=== PATIENT | female | born 1935 | race Caucasian/White ===

== ENCOUNTER 2017-02-05 09:15 | Outpatient (CLI) | payer MEDICARE ==
[2017-02-05 10:31] LABS: ALT (SGPT) 17 U/L (8-55); AST (SGOT) 25 U/L (5-34); Albumin 4.1 g/dL (3.4-4.8); Alkaline Phosphatase 74 U/L (40-150); Anion Gap 14 mmol/L (10-20); BUN (Urea Nitrogen) 23 mg/dL (9.8-20.1); Bilirubin, Total 0.5 mg/dL (0.2-1.2); Calc. Creatinine Clearance 0 mL/min (70-130); Calcium 9.5 mg/dL (7.8-10.44); Carbon Dioxide 29 mmol/L (23-31); Cardiac Risk 3.3 (Less than 4.5); Chloride 104 mmol/L (98-107); Cholesterol 206 mg/dl (< 200 Desired); Estimated GFR-MDRD 73; Globulin 3.7 g/dL (2.4-3.5); Glucose 91 mg/dL (83-110); HDL Cholesterol 63 mg/dL (>60 Neg Risk); LDL Cholesterol, Calculated 130 mg/dL; Potassium 4.8 mmol/L (3.5-5.1); Protein, Total 7.8 g/dL (6.0-8.3); Sodium 142 mmol/L (136-145); Triglycerides 64 mg/dL (Less than 150)
[2017-02-05 11:11] LABS: #Basophils 0.1 thou/uL (0.0-0.2); #Eosinphils 0.1 thou/uL (0.0-0.7); #Lymphocytes 1.7 thou/uL (1.20-3.40); #Monocytes 0.7 thou/uL (0.11-0.59); #Neutrophils 2.8 thou/uL (1.40-6.50); %Basophils 1.1 % (0.0-1.0); %Eosinophils 2.3 % (0.0-10.0); %Lymphocytes 31.2 % (21.0-51.0); %Monocytes 12.6 % (0.0-10.0); %Neutrophils 52.8 % (42.0-75.0); Hemoglobin 12.8 g/dL (12.0-16.0); Mean Corpuscular HGB CONC 33.1 g/dL (32.0-36.0); Mean Corpuscular Hemoglobin 30.9 pg (27.0-31.0); Mean Corpuscular Volume 93.3 fl (81.0-99.0); Mean Platelet Volume 7.1 fL (7.4-10.4); Platelet Count 188 thou/uL (130-400); RBC Distribution Width 12.5 % (11.5-14.5); Red Blood Cell (RBC) Count 4.15 mill/uL (4.20-5.40); White Blood Cell (WBC) Count 5.4 thou/uL (4.8-10.8)
== END 2017-02-05 09:16 | disposition home or self-care (01) ==
LOC: HPCALD 09:15
PROVIDERS: ATTEND Family Medicine
DX: E78.5 Hyperlipidemia, unspecified (principal); E03.9 Hypothyroidism, unspecified
CPT/HCPCS: 36415; 80053; 80061; 84443; 85025

== ENCOUNTER 2019-05-19 02:40 | Emergency (ER) | payer MEDICARE ==
--- NOTE | 2019-05-19 09:30 | CT ---
PRELIMINARY REPORT/[facility]/EMERGENCY AFTER HOURS PROCEDURE: PROCEDURE INFORMATION: Exam: CT Head Without Contrast Exam date and time: 05/19/2019 2:49 AM Clinical history: 84 years old, female; Injury or trauma; Initial encounter; Blunt trauma (contusions or hematomas); Without loss of consciousness; Injury date: 05/19/19; Injury details: S/P fall, lac/s welling over RT eyebrow TECHNIQUE: Imaging protocol: Computed tomography of the head without contrast. Radiation optimization: All CT scans at this facility use at least one of these dose optimization techniques: automated exposure control; mA and/or kV adjustment per patient size (includes targeted e xams where dose is matched to clinical indication); or iterative reconstruction. COMPARISON: No relevant prior studies available. FINDINGS: Brain: Scattered areas of hypoattenuation, likely chronic small vessel ischemic change, demyelination, or gliosis. No mass, hemorrhage, or acute infarction. Ventricles: Normal. Bones/joints: Normal. Sinuses: Normal as visualized. Mastoid air cells: Normal as visualized. Soft tissues: Moderate right frontal soft tissue swelling/contusion, with 2 cm subcutaneous hematoma. Vasculature: Atherosclerotic vascular calcifications. IMPRESSION: 1. No acute intracranial abnormality. 2. Moderate right frontal soft tissue swelling/contusion, with 2 cm subcutaneous hematoma. Thank you for allowing us to participate in the care of your patient. Dictated and Authenticated by: Thor Azar MD 05/19/2019 3:25 AM Central Time ([place] & [place]) FINAL REPORT CT OF THE BRAIN WITHOUT CONTRAST: Date: 05/19/19 Comparison made with the 05/26/16 study. Review of MRI of the brain report since then was made as wel og. A soft tissue contusion is seen over the forehead just to the right of midline. The underlying fronta l bone appears intact with no fracture. Internally, there is no sign of intracranial hemorrhage or ex tra-axial hematoma. The ventricular sizes are normal for age and atrophy. Patchy deep white matter dedra cency is typical of chronic microvascular ischemia. Basal ganglia calcifications are noted. IMPRESSION: No acute intracranial findings. Soft tissue contusion over the right forehead. Report in agreement with preliminary reading by [facility]. POS: HOME
--- NOTE | 2019-05-19 09:31 | CT ---
PRELIMINARY REPORT/[facility]/EMERGENCY AFTER HOURS PROCEDURE: PROCEDURE INFORMATION: Exam: CT Cervical Spine Without Contrast Exam date and time: 05/19/2019 2:52 AM Clinical history: 84 years old, female; Injury or trauma; Initial encounter; Blunt trauma; Injury fatmata e: 05/19/19; Injury details: S/P fall, PT C/O neck pain TECHNIQUE: Imaging protocol: Computed tomography images of the cervical spine without contrast. Radiation optimization: All CT scans at this facility use at least one of these dose optimization iraida hniques: automated exposure control; mA and/or kV adjustment per patient size (includes targeted exam s where dose is matched to clinical indication); or iterative reconstruction. COMPARISON: No relevant prior studies available. FINDINGS: Vertebrae: No acute fracture or malalignment. Discs/Spinal canal/Neural foramina: Multilevel degenerative disc disease, worst at the C4-5 through C 6-7 levels, where there is moderate disc space narrowing and osteophyte formation. Moderate degenerative changes of the atlantoaxial reticulation. Moderate multilevel bilateral facet a nd uncovertebral arthropathy. Bilateral C3-4, C4-5, bilateral C5-6, and left C6-7 neural foraminal na rrowing. Soft tissues: Normal. Lungs: Lung apices are normal. Vasculature: Carotid atherosclerotic calcifications. IMPRESSION: No acute fracture or malalignment. Thank you for allowing us to participate in the care of your patient. Dictated and Authenticated by: Thor Azar MD 05/19/2019 3:26 AM Central Time ([place] & [place]) FINAL REPORT CT OF THE CERVICAL SPINE: Date: 05/19/[address] of the cervical spine was done following trauma. There is some loss of the normal cervical lordosis, which may be due to muscle spasm. The C1 to dens distance is not widened and the soft tissues are normal in thickness. Disc space narrowing is particu larly present at C4-C5, C5-C6, and C6-C7. No fracture seen. Multilevel facet arthritis is present thr oughout the entire spine. Bilateral foraminal narrowing is seen at C3-C4, C4-C5, C5-C6, and on the le ft at C6-C7. Numerous osteophytes are apparent. IMPRESSION: Numerous degenerative changes and loss of the normal cervical lordosis. No fracture demonstrated. Report in agreement with preliminary reading by Mar[facility]. POS: HOME
== END 2019-05-19 05:20 ==
LOC: BURERS 02:40
DX: S61.411A Laceration without foreign body of right hand, initial encounter (principal); S00.83XA Contusion of other part of head, initial encounter; Z23 Encounter for immunization; Z79.899 Other long term (current) drug therapy; Z79.82 Long term (current) use of aspirin; W01.0XXA Fall on same level from slipping, tripping and stumbling without subsequent striking against object, initial encounter
CPT/HCPCS: 70450; 72125; 90471

== ENCOUNTER 2020-01-27 18:50 | Emergency (ER) | payer MEDICARE, OTHER ==
[~2020-01-27 18:50] MED LIST: Iopamidol 370 76% 100 ML VIAL ONE
[2020-01-27 19:25] LABS: #Basophils 0.1 thou/uL (0.0-0.2); #Lymphocytes 1.6 thou/uL (1.20-3.40); #Monocytes 0.6 thou/uL (0.11-0.59); %Basophils 1.4 % (0.0-1.0); %Eosinophils 0.9 % (0.0-10.0); %Lymphocytes 30.3 % (21.0-51.0); %Monocytes 11.4 % (0.0-10.0); %Neutrophils 55.9 % (42.0-75.0); Hemoglobin 11.9 g/dL (12.0-16.0); Mean Corpuscular HGB CONC 31.1 g/dL (32.0-36.0); Mean Corpuscular Hemoglobin 31.2 pg (27.0-31.0); Mean Platelet Volume 7.2 fL (7.4-10.4); Platelet Count 176 thou/uL (130-400); RBC Distribution Width 12.1 % (11.5-14.5); Red Blood Cell (RBC) Count 3.82 mill/uL (4.20-5.40); White Blood Cell (WBC) Count 5.3 thou/uL (4.8-10.8)
[2020-01-27 19:39] LABS: ALT (SGPT) 14 U/L (8-55); AST (SGOT) 18 U/L (5-34); Albumin 3.9 g/dL (3.4-4.8); Alkaline Phosphatase 55 U/L (40-110); Anion Gap 15 mmol/L (10-20); BUN (Urea Nitrogen) 16 mg/dL (9.8-20.1); Bilirubin, Total 0.3 mg/dL (0.2-1.2); Calc. Creatinine Clearance 0 mL/min (70-130); Calcium 9.3 mg/dL (7.8-10.44); Carbon Dioxide 26 mmol/L (23-31); Chloride 104 mmol/L (98-107); Estimated GFR-MDRD 60; Globulin 3.1 g/dL (2.4-3.5); Glucose 138 mg/dL (83-110); Potassium 3.9 mmol/L (3.5-5.1); Sodium 141 mmol/L (136-145)
--- NOTE | 2020-01-27 19:59 | CT ---
CT OF THE BRAIN WITHOUT CONTRAST: 01/27/20 Comparison is made with the 05/19/19 study. There has been no adverse interval change. No intracranial bleeding, mass, or extra-axial hematoma wa s seen. There is no sign of edema or acute stroke. The ventricles are normal in size given age and at rophy. There is abundant atrophy and chronic ischemic change throughout the deep white matter, as bef ore. The calvarium appears intact. The visible paranasal sinuses and mastoid air cells are clear. IMPRESSION: No acute intracranial findings. Abundant chronic changes as noted. Preliminary report called to Dr. Ruiz at 1941 on 01/27/20. POS: HOME
--- NOTE | 2020-01-27 20:05 | RAD ---
PELVIS ONE VIEW: 01/27/20 The bony pelvis appears intact. No fractures are seen. The SI joints are symmetrical. The arcuate akosua es of the sacrum appear intact. The hips show no gross fracture or dislocation. The symphysis shows n o widening or off-set. The pubic rings are intact. Femoral artery calcifications are evident. IMPRESSION: No acute bony finding. POS: HOME
--- NOTE | 2020-01-27 20:06 | RAD ---
PORTABLE CHEST: 01/27/20 Comparison is made with the 05/26/16 study. The heart is mildly enlarged but there are no congestive changes or pleural effusions. The lungs are currently clear. No focal pneumonia or pleural effusion was indicated. Calcification is seen in the a ortic arch as usual. Severe arthritic changes in the left glenohumeral joint are present as before. IMPRESSION: No acute thoracic findings. POS: HOME
--- NOTE | 2020-01-27 20:11 | CT ---
CT OF THE CERVICAL SPINE: 01/27/20 Comparison is made with the 05/19/19 study. The patient is turned to the side which slightly impedes reading the study. Nevertheless, no fracture , dislocation, or acute bony change was seen. There is no soft tissue swelling. The C1 to dens distan ce is not widened. There is bilateral foraminal narrowing at most cervical levels as has been mention ed on the prior study. Changes in narrowing are worst at the C5-C6 and C6-C7 levels. Disc space narro wing is present at C4 and below. IMPRESSION: Advanced degenerative changes but no acute traumatic findings. Preliminary report called to Dr. Ruiz at 1941 on 01/27/20. POS: HOME
--- NOTE | 2020-01-27 21:37 | CT ---
CT CHEST, ABDOMEN AND PELVIS WITH CONTRAST: 01/27/[address] of the abdomen and pelvis was done after giving IV contrast. CT OF THE THORAX: There is no sign of mediastinal hematoma, mass, or adenopathy. The aorta appears intact and contains no aneurysm or dissection. No pericardial effusion was seen. The lungs are clear except for some depe ndent atelectasis and minor scarring. There is no sign of parenchymal contusion, pleural effusion or pneumothorax. The ribs and other thoracic structures showed no acute changes. There is a mild anterio r compression of the T11 vertebral body, but this is not new. It can be seen on a [address] OF THE ABDOMEN AND PELVIS: The liver, spleen, pancreas, gallbladder, adrenal glands, kidneys and abdominal aorta showed no acute changes. All organs appeared intact and show no laceration or hematoma. There is no distention of bowel or inflammatory change around it. No free air or free fluid was seen. CT of the pelvis shows no pelvic mass, fluid collection or inflammatory change. The bony pelvis, hips and lumbar spine showed no acute fracture. There are numerous degenerative changes of a moderately s evere degree throughout the lumbar spine. Degenerated discs are seen at multiple levels and there is even a small sequestered fragment on the left at L3. This is most likely longstanding as well. IMPRESSION: 1. No acute findings in the chest, abdomen or pelvis. 2. Mild anterior compression of T11, a longstanding finding. Preliminary report called to Dr. Ruiz at [id number] on 01/27/20. POS: HOME
[2020-01-27] MEDS ORDERED: Haloperidol Lactate 5 MG/ML VIAL ONE (21:52)
[2020-01-27 23:13] LABS: Lactic Acid 2.3 mmol/L (0.5-2.2)
[2020-01-28 00:15] LABS: Bilirubin Negative (Negative); Blood, Urine Trace (Negative); Clarity Slightly Cloudy (Clear); Glucose, Urine (Dipstick) Negative (Negative); Ketone, Urine Negative (Negative); Leukocyte Moderate (Negative); Nitrite Positive (Negative); Protein, Urine (Dipstick) Negative (Neg-Trace); Specific Gravity, Urine 1.015 (1.005-1.030); Urobilinogen 0.2 mg/dL (Less than 2)
[2020-01-28 00:19] LABS: Bacteria/HPF 2+ HPF (None Seen); Squamous Epithelial None Seen HPF (0-3); WBC/HPF Greater Than 50 HPF (0-3)
[2020-01-28] MEDS ORDERED: cefTRIAXone\\ROCEPHIN 1 GM VIAL ONE (00:30)
[2020-01-28] MEDS ORDERED: Lidocaine 1% PF 5 ML VIAL ONE (00:31)
== END 2020-01-28 00:59 | disposition home or self-care (01) ==
LOC: BURERS 18:50
DX: Z04.3 Encounter for examination and observation following other accident (principal); E86.0 Dehydration; N39.0 Urinary tract infection, site not specified; F32.9 Major depressive disorder, single episode, unspecified; E03.9 Hypothyroidism, unspecified; E78.5 Hyperlipidemia, unspecified; K21.9 Gastro-esophageal reflux disease without esophagitis; F03.90 Unspecified dementia, unspecified severity, without behavioral disturbance, psychotic disturbance, mood disturbance, and anxiety; Z79.899 Other long term (current) drug therapy; Z79.82 Long term (current) use of aspirin
CPT/HCPCS: 36415; 51701; 70450; 71045; 71260; 72125; 72170; 74177; 80053; 81003; 81015; 83605; 85025; 85610; 87077; 87086; 87186; 93005; 96361; 96372; 96374; J0696; J1630; J2001; Q9967

== ENCOUNTER 2020-03-20 13:34 | Emergency (ER) | payer MEDICARE, MEDICAID ==
[2020-03-20 14:07] LABS: Bilirubin Negative (Negative); Blood, Urine Moderate (Negative); Clarity Cloudy (Clear); Glucose, Urine (Dipstick) Negative (Negative); Ketone, Urine Trace mg/dL (Negative); Leukocyte Large (Negative); Nitrite Positive (Negative); Protein, Urine (Dipstick) 100 mg/dL (Neg-Trace); Urobilinogen 0.2 mg/dL (Less than 2); pH, Urine 5.5 (5.0-9.0)
[2020-03-20 14:08] LABS: Specific Gravity, Urine 1.024 (1.002-1.036)
[2020-03-20 14:11] LABS: Bacteria/HPF 4+ HPF (None Seen); Mucous/LPF 2+ LPF (<2+); Squamous Epithelial 0-3 HPF (0-3); WBC/HPF Greater Than 50 HPF (0-3)
[2020-03-20 14:12] LABS: #Basophils 0.1 thou/uL (0.0-0.2); #Lymphocytes 1.7 thou/uL (1.20-3.40); #Monocytes 0.7 thou/uL (0.11-0.59); %Basophils 1.1 % (0.0-1.0); %Eosinophils 0.5 % (0.0-10.0); %Monocytes 8.9 % (0.0-10.0); %Neutrophils 66.4 % (42.0-75.0); Hemoglobin 13.3 g/dL (12.0-16.0); Mean Corpuscular HGB CONC 31.3 g/dL (32.0-36.0); Mean Corpuscular Hemoglobin 31.4 pg (27.0-31.0); Mean Platelet Volume 8.5 fL (7.4-10.4); Platelet Count 194 thou/uL (130-400); RBC Distribution Width 11.8 % (11.5-14.5); Red Blood Cell (RBC) Count 4.24 mill/uL (4.20-5.40); White Blood Cell (WBC) Count 7.5 thou/uL (4.8-10.8)
[2020-03-20 14:22] LABS: ALT (SGPT) 30 U/L (8-55); AST (SGOT) 33 U/L (5-34); Alkaline Phosphatase 63 U/L (40-110); Anion Gap 17 mmol/L (10-20); BUN (Urea Nitrogen) 21 mg/dL (9.8-20.1); Bilirubin, Total 0.4 mg/dL (0.2-1.2); CK (CPK) 38 U/L (29-168); Calc. Creatinine Clearance 0 mL/min (70-130); Calcium 9.4 mg/dL (7.8-10.44); Carbon Dioxide 24 mmol/L (23-31); Chloride 105 mmol/L (98-107); Estimated GFR-MDRD 50; Globulin 2.9 g/dL (2.4-3.5); Glucose 142 mg/dL (83-110); Protein, Total 6.9 g/dL (6.0-8.3); Sodium 142 mmol/L (136-145)
[2020-03-20] MEDS ORDERED: cefTRIAXone\\ROCEPHIN 2 GM VIAL ONE (14:33)
[2020-03-20] MEDS ORDERED: Sodium Chloride 0.9% 0 ML ONE (14:34)
[2020-03-20] MEDS ORDERED: Sodium Chloride 0.9% 100 ML ONE (14:35)
--- NOTE | 2020-03-20 18:25 | CT ---
CT OF THE BRAIN WITHOUT CONTRAST: Date: 03-20-2020 Comparison: 01-27-2020 FINDINGS: As before, patchy hypolucency is present throughout the deep white matter, typical of chronic microva scular ischemia. There were no findings strongly suggestive of acute stroke though small ones can be missed against this background. No intracranial bleeding or extraaxial hematoma was seen. Diffuse atr ophy with mild compensatory dilatation of the ventricles is seen as before. Basal ganglia calcificati ons are prominent bilaterally. The skull appears intact and the visible paranasal sinuses are clear. IMPRESSION: Atrophy and chronic ischemic change but no acute findings. Preliminary report called to Dr. Boudreaux at 1424 on 03-20-2020. POS: HOME
--- NOTE | 2020-03-20 19:26 | CT ---
CT OF THE CERVICAL SPINE: Date: 03-20-[address] of the cervical spine was done following trauma. Axial slices were acquired followed by cor onal and sagittal reconstructions. FINDINGS: No fracture, dislocation, or acute bony change was noted. The disc spaces are uniformly narrowed at a ll cervical levels, but particularly at C4 and below. Soft tissues of the neck showed no acute trauma tic changes. Findings by level follow: C1-2: No acute findings. C2-3: Mild right foraminal stenosis. C3-4: Moderate to severe right foraminal stenosis and moderate left foraminal stenosis. C4-5: Bilateral severe foraminal stenosis. The AP diameter of the spinal canal at this level was abou t 9 mm. C5-6: Severe bilateral foraminal stenosis. The AP diameter of the canal at this level is approximatel y 9 mm. C6-7: Moderate to severe left foraminal stenosis due to osteophytes. C7-T1: No acute findings. T1-2: No acute findings. T2-3: No acute findings. There is an 8 mm nodular density in the right lung apex. I cannot tell if it is an actual nodule or i f it part of some pleural scarring. Looking back at the prior CT of 01-27-2020, it was a little less co nspicuous on that scan than it is now. Given its subcentimeter size and the patient's age, the need f or further follow up is felt to be low to nonexistent. IMPRESSION: 1. No acute traumatic finding. 2. Moderately severe degenerative changes noted with multilevel degenerative disc disease, mild centr al canal stenosis, at least two levels. 3. Equivocal right apical nodule, 8 mm, probably not of current concern. Preliminary report called to Dr. Boudreaux at 1424 on 03-20-2020. POS: HOME
--- NOTE | 2020-03-20 20:05 | RAD ---
PORTABLE CHEST: Date: 03-20-2020 An AP portable film at 1422 is compared with a 01-27-2020 study. FINDINGS: The heart remains normal in size and the lungs are clear. No infiltrate, effusion, or congestive haque ge was seen. There might be some minimal atelectasis in the right costophrenic angle. No fractures we re evident, though subtle injuries might be missed due to her osteopenia. There are severe degenerati ve changes in the left glenohumeral joint and right AC joint. IMPRESSION: No acute thoracic finding. POS: HOME
== END 2020-03-20 16:25 | disposition short-term general hospital (02) ==
LOC: BURERS 13:34
DX: N39.0 Urinary tract infection, site not specified (principal); R41.82 Altered mental status, unspecified; E03.9 Hypothyroidism, unspecified; E78.5 Hyperlipidemia, unspecified; K21.9 Gastro-esophageal reflux disease without esophagitis; I10 Essential (primary) hypertension; F03.90 Unspecified dementia, unspecified severity, without behavioral disturbance, psychotic disturbance, mood disturbance, and anxiety; F32.9 Major depressive disorder, single episode, unspecified; Z79.899 Other long term (current) drug therapy; Z79.82 Long term (current) use of aspirin
CPT/HCPCS: 36415; 51701; 70450; 71045; 72125; 80053; 81003; 81015; 82550; 83605; 84484; 85025; 87040; 87077; 87086; 87186; 93005; 96361; 96374; J0696; J3490

== ENCOUNTER 2020-05-10 10:27 | Outpatient (CLI) | payer MEDICARE, MEDICAID ==
[2020-05-10 10:37] LABS: #Basophils 0.1 thou/uL (0.0-0.2); #Eosinphils 0.1 thou/uL (0.0-0.7); #Lymphocytes 1.6 thou/uL (1.20-3.40); #Monocytes 0.7 thou/uL (0.11-0.59); #Neutrophils 2.4 thou/uL (1.40-6.50); %Basophils 1.6 % (0.0-1.0); %Eosinophils 1.5 % (0.0-10.0); %Monocytes 13.5 % (0.0-10.0); %Neutrophils 49.5 % (42.0-75.0); Hemoglobin 11.2 g/dL (12.0-16.0); Mean Corpuscular HGB CONC 31.1 g/dL (32.0-36.0); Mean Corpuscular Hemoglobin 31.1 pg (27.0-31.0); Mean Platelet Volume 7.5 fL (7.4-10.4); Platelet Count 280 thou/uL (130-400); RBC Distribution Width 12.3 % (11.5-14.5); Red Blood Cell (RBC) Count 3.61 mill/uL (4.20-5.40); White Blood Cell (WBC) Count 4.8 thou/uL (4.8-10.8)
[2020-05-10 10:51] LABS: ALT (SGPT) 22 U/L (8-55); AST (SGOT) 23 U/L (5-34); Albumin 3.6 g/dL (3.4-4.8); Alkaline Phosphatase 63 U/L (40-110); Anion Gap 14 mmol/L (10-20); BUN (Urea Nitrogen) 22 mg/dL (9.8-20.1); Bilirubin, Total 0.4 mg/dL (0.2-1.2); Calc. Creatinine Clearance 0 mL/min (70-130); Calcium 8.7 mg/dL (7.8-10.44); Carbon Dioxide 26 mmol/L (23-31); Chloride 103 mmol/L (98-107); Estimated GFR-MDRD 58; Globulin 3.1 g/dL (2.4-3.5); Glucose 121 mg/dL (83-110); Potassium 3.9 mmol/L (3.5-5.1); Protein, Total 6.7 g/dL (6.0-8.3); Sodium 139 mmol/L (136-145)
== END 2020-05-10 10:28 | disposition home or self-care (01) ==
LOC: BURMANOR 10:27
PROVIDERS: ATTEND Registered Nurse Community Health
DX: R40.20 Unspecified coma (principal)
CPT/HCPCS: 80053; 85025

== ENCOUNTER 2020-06-22 02:35 | Emergency (ER) | payer MEDICARE, MEDICAID ==
[2020-06-22 03:24] LABS: Anion Gap 17 mmol/L (10-20); BUN (Urea Nitrogen) 35 mg/dL (9.8-20.1); Bilirubin Moderate (Negative); Blood, Urine Moderate (Negative); Calc. Creatinine Clearance 0 mL/min (70-130); Carbon Dioxide 24 mmol/L (23-31); Chloride 109 mmol/L (98-107); Clarity Cloudy (Clear); Glucose, Urine (Dipstick) Negative (Negative); Ketone, Urine Trace mg/dL (Negative); Leukocyte Trace (Negative); Nitrite Negative (Negative); Potassium 4.1 mmol/L (3.5-5.1); Protein, Urine (Dipstick) > or equal to 300 mg/dL (Neg-Trace); Sodium 146 mmol/L (136-145); pH, Urine 5.5 (5.0-9.0)
[2020-06-22 03:25] LABS: ALT (SGPT) 67 U/L (8-55); AST (SGOT) 40 U/L (5-34); Albumin 3.2 g/dL (3.4-4.8); Alkaline Phosphatase 81 U/L (40-110); Bilirubin, Total 0.9 mg/dL (0.2-1.2); Calcium 8.4 mg/dL (7.8-10.44); Globulin 3.6 g/dL (2.4-3.5); Glucose 159 mg/dL (83-110); Protein, Total 6.8 g/dL (6.0-8.3); Specific Gravity, Urine 1.029 (1.002-1.036)
[2020-06-22 03:28] LABS: Bacteria/HPF 3+ HPF (None Seen); Squamous Epithelial 0-3 HPF (0-3)
[2020-06-22] MEDS ORDERED: cefTRIAXone\\ROCEPHIN 1 GM VIAL ONE (03:34)
[2020-06-22] MEDS ORDERED: Dexamethasone 4 mg/ml Vial ONE (03:34)
[2020-06-22 03:35] LABS: Band 3 % (5-11); Hemoglobin 11.7 g/dL (12.0-16.0); Lymphocytes 5 % (21-51); MDiff Complete? YES; Mean Corpuscular HGB CONC 33.3 g/dL (32.0-36.0); Mean Corpuscular Hemoglobin 31.4 pg (27.0-31.0); Mean Corpuscular Volume 94.5 fL (78.0-98.0); Mean Platelet Volume 7.9 fL (7.4-10.4); Monocytes 10 % (0-10); Neutrophil 82 % (42-75); Platelet Count 237 thou/uL (130-400); Platelet Morphology Comment Appears Adequate; RBC Distribution Width 12.5 % (11.5-14.5); RBC Morphology Normal; Red Blood Cell (RBC) Count 3.73 mill/uL (4.20-5.40); White Blood Cell (WBC) Count 24.6 thou/uL (4.8-10.8)
[2020-06-22 03:56] LABS: CKMB 1.3 ng/mL (0-6.6)
--- NOTE | 2020-06-22 08:03 | RAD ---
PORTABLE CHEST: Date: 06/22/2020 Comparison made with the 03/31/2020 study. In the interval, there has been the appearance of patchy infiltrates in the lungs bilaterally, a stepan le denser on the left than on the right. I hear the patient is COVID-positive, so this is presumably related to that. There are no effusions or congestive changes. The heart size remains normal. Severe arthritic changes are seen in each glenohumeral joint. IMPRESSION: Interval appearance of patchy lung infiltrates, left greater than right. COVID-related pneumonia is p resumed given the clinical history. POS: HOME
--- NOTE | 2020-06-22 08:06 | CT ---
PRELIMINARY REPORT/[facility]/EMERGENCY AFTER HOURS PROCEDURE: EXAM: CT Head Without Intravenous Contrast. CLINICAL HISTORY: 85-year-old female who is a resident at [facility] is brought in by EMS with decline in her m ental status with decreased oxygen saturation, known to be Covid positive. retirement staff was uns ure when her positive test was. O2 sat was reportedly 87% on room air, which is improved to 93% on ro om air on arrival to ER. retirement staff added that the patient is usually more alert and now will not track with her eyes TECHNIQUE: Axial computed tomography images of the head/brain without intravenous contrast. COMPARISON: None provided. FINDINGS: BRAIN: No acute intraparenchymal hemorrhage. No mass lesion. No CT evidence for acute territorial infarct. N o midline shift or extra-axial collection. bilateral symmetric nonspecific basal ganglia calcificatio ns. Bilateral patchy periventricular hypodensities consistent with chronic microvascular disease. VENTRICLES: No hydrocephalus. ORBITS: Status post bilateral lens replacement the globes. The orbits are otherwise unremarkable. SINUSES AND MASTOIDS: Mild opacification with air fluid levels in the bilateral sphenoid sinuses. The paranasal sinuses and mastoid air cells are otherwise clear. SOFT TISSUES: No significant facial or scalp soft tissue swelling evident. No radiopaque foreign body is seen. Athe rosclerotic calcifications involving the bilateral internal carotid arteries. BONES: No acute skull fracture. IMPRESSION: 1. No acute intracranial abnormality. 2. Sequela of chronic microvascular disease. 3. Mild paranasal sinus disease involving the sphenoid sinuses. ELECTRONICALLY SIGNED BY: Jose Land MD Jun 22, 2020 3:53:26 AM DIRECTOR OF MEDICAL REVIEW This report is intended for review by the ordering physician only, in accordance of law. If you recei ve this report in error, please call [facility] at [phone]. FINAL REPORT CT OF THE BRAIN WITHOUT CONTRAST: Date: 06/22/2020 Comparison made with the 03/31/2020 study. FINDINGS: Diffuse moderately severe atrophy with mild compensatory dilatation of the ventricles is present. The appearance is really no different than the prior exam. Patchy deep white matter hypolucency is typic al of chronic microvascular ischemia. There were no signs of acute stroke, mass, edema, or bleeding. The skull appears intact. There is some fluid and/or mucosal thickening on each side of the sphenoid sinus. This is a new finding since the last study. Thus, sinusitis is presumed. The mastoid air cells are clear. There is chronic deviation of the nasal septum towards the left. IMPRESSION: 1. Atrophy and chronic ischemic changes, but no acute intracranial findings. 2. Interval appearance of fluid and/or mucosal thickening in the sphenoid. Sinusitis is assumed. Report in agreement with preliminary reading by [facility]. POS: HOME
== END 2020-06-22 04:42 | disposition short-term general hospital (02) ==
LOC: BURERS 02:35
DX: U07.1 COVID-19 (principal); N39.0 Urinary tract infection, site not specified; E03.9 Hypothyroidism, unspecified; K21.9 Gastro-esophageal reflux disease without esophagitis; I10 Essential (primary) hypertension; Z79.899 Other long term (current) drug therapy
CPT/HCPCS: 51701; 70450; 71045; 80053; 81003; 81015; 82553; 83605; 83880; 84484; 85025; 87040; 87077; 87086; 87149; 87186; 93005; 94760; 96365; 96375; J0696; J1100